=== PATIENT | female | born 1995 | race Caucasian/White ===

== ENCOUNTER 2018-02-17 22:23 | Emergency (ER) | payer BC ==
[~2018-02-17] VITALS: Ht 154.9 cm; Wt 49.4 kg
[2018-02-17 22:30] VITALS: BP 125/57; PULSE 92; RESP 16; TEMP 98.4; O2SAT 100
--- NOTE | 2018-02-17 23:41 | PD ---
HPI Chief Complaint: Skin Problem Time Seen by Provider: 23:36 Travel History International Travel<30 days: No Contact w/Intl Traveler<30days: No Traveled to known affect area: No History of Present Illness HPI 22-year-old female patient complains of pain in the left breast which has worsened significantly over the past 2 days. She now has constant pain and states is severe. Initially it worsened towards the end of menstruation and persisted afterward which patient stated was atypical. No fever. Pt reports nipple piercing years prior. no trauma. no similar prior. no hx breast ca. PFSH Past Medical History Medical History: Denies Significant Hx ?: Not Past Surgical History Surgical History: No Previous Surgery Social History Alcohol Use: Yes Tobacco Use: No Substance Use: No Allergies-Medications (Allergen,Severity, Reaction): Coded Allergies: No Known Allergies (Unverified , 02/17/18) Reported Meds & Prescriptions Reported Meds & Active Scripts Active Hydrocodone-Acetaminophen 5-325 mg Tab 1-2 Tab PO Q6H PRN Clindamycin (Clindamycin HCl) 150 Mg Cap 450 Mg PO Q8HR 10 Days Review of Systems Except as stated in HPI: all other systems reviewed are Neg General / Constitutional: No: Fever Eyes: No: Diploplia HENT: No: Headaches Cardiovascular: No: Chest Pain or Discomfort Physical Exam Narrative GENERAL: 22 yo F, WNWD, mild anxiety Vital Signs Date Time Temp Pulse Resp B/P (MAP) Pulse Ox O2 Delivery O2 Flow Rate FiO2 02/17/18 22:30 98.4 92 16 125/57 (79) 100 SKIN: Warm and dry. L breast cellulitis with abscess: medial inferior hemisphere approx 7cm with induration, erythema and fluctuance. No necrosis about the L breast. HEAD: Atraumatic. Normocephalic. EYES: Pupils equal and round. No scleral icterus. No injection or drainage. ENT: No nasal bleeding or discharge. Mucous membranes pink and moist. NECK: Trachea midline. No JVD. CARDIOVASCULAR: Regular rate and rhythm. RESPIRATORY: No accessory muscle use. Clear to auscultation. Breath sounds equal bilaterally. GASTROINTESTINAL: Abdomen soft, non-tender, nondistended. Hepatic and splenic margins not palpable. MUSCULOSKELETAL: Extremities without clubbing, cyanosis, or edema. No obvious deformities. NEUROLOGICAL: Awake and alert. No obvious cranial nerve deficits. Motor grossly within normal limits. Five out of 5 muscle strength in the arms and legs. Normal speech. PSYCHIATRIC: Appropriate mood and affect; insight and judgment normal. Data Data Last Documented VS Vital Signs Date Time Temp Pulse Resp B/P (MAP) Pulse Ox O2 Delivery O2 Flow Rate FiO2 02/17/18 22:30 98.4 92 16 125/57 (79) 100 Orders Orders Basic Metabolic Panel (Bmp) (02/17/18 23:41) Complete Blood Count With Diff (02/17/18 23:41) Wound Culture And Gram Stain (02/17/18 23:41) Iv Access Insert/Monitor (02/17/18 23:41) Wound Care (02/17/18 23:41) Vancomycin Inj (Vancomycin Inj) (02/17/18 23:45) Propofol 200 Mg/20 Ml Inj (Diprivan 200 (02/18/18 00:30) Diphenhydramine Inj (Benadryl Inj) (02/18/18 00:58) Ed Discharge Order (02/18/18 01:08) Acetamin-Hydrocod 325-5 Mg ([place] 5-325 (02/18/18 01:15) Labs Laboratory Tests Test 02/17/18 23:51 White Blood Count 15.7 TH/MM3 Red Blood Count 4.33 MIL/MM3 Hemoglobin 12.7 GM/DL Hematocrit 37.2 % Mean Corpuscular Volume 86.0 FL Mean Corpuscular Hemoglobin 29.3 PG Mean Corpuscular Hemoglobin Concent 34.0 % Red Cell Distribution Width 12.2 % Platelet Count 340 TH/MM3 Mean Platelet Volume 8.0 FL Neutrophils (%) (Auto) 72.0 % Lymphocytes (%) (Auto) 18.6 % Monocytes (%) (Auto) 8.3 % Eosinophils (%) (Auto) 0.7 % Basophils (%) (Auto) 0.4 % Neutrophils # (Auto) 11.3 TH/MM3 Lymphocytes # (Auto) 2.9 TH/MM3 Monocytes # (Auto) 1.3 TH/MM3 Eosinophils # (Auto) 0.1 TH/MM3 Basophils # (Auto) 0.1 TH/MM3 CBC Comment DIFF FINAL Differential Comment Blood Urea Nitrogen 10 MG/DL Creatinine 0.53 MG/DL Random Glucose 87 MG/DL Calcium Level 9.1 MG/DL Sodium Level 141 MEQ/L Potassium Level 3.7 MEQ/L Chloride Level 103 MEQ/L Carbon Dioxide Level 30.3 MEQ/L Anion Gap 8 MEQ/L Estimat Glomerular Filtration Rate 146 ML/MIN MDM Medical Decision Making Medical Screen Exam Complete: Yes Emergency Medical Condition: Yes Medical Record Reviewed: Yes Differential Diagnosis Abscess, cellulitis, fibrocystic change Narrative Course CBC & BMP Diagram 02/17/18 23:51 Calcium Level 9.1 18-gauge needle aspiration was performed and successfully aspirated at least 200 cc of purulent discharge. Culture sent. Clindamycin started. Discussed with Dr. Perez. Patient will follow up with him in the morning. Clindamycin prescription. Procedures Procedure Narrative After the risks and benefits were discussed the following procedure was performed: INCISION AND DRAINAGE OF ABSCESS: The area was prepped and was sterilely draped. A number 18 gauge needle successfully aspirated approx 200cc purulent discharge. Cultures were obtained. The patient was placed on a groundwater monitoring technician and pulse oximetry. An ambu bag and suction was immediately available at bedside. The patient was monitored by the nurse. Oxygen saturation, heart rate and blood pressure were monitored. Procedural sedation was acheived using propofol. The patient was observed until awake and alert. Procedural Sedation time in attendance was 15 minutes. Diagnosis Primary Impression: Breast abscess Referrals: Agustin Perez MD 1 day Med/Other Pt SpecificInfo: Prescription(s) given Scripts Hydrocodone-Acetaminophen (Hydrocodone-Acetaminophen) 5-325 mg Tab 1-2 TAB PO Q6H Y for PAIN SCALE 6 TO 10, #12 TAB 0 Refills Prov: Fahad Parker MD 02/18/18 Clindamycin (Clindamycin) 150 Mg Cap 450 MG PO Q8HR for Infection for 10 Days, CAP 0 Refills Prov: Fahad Parker MD 02/18/18 Disposition: 01 DISCHARGE HOME Condition: Stable Fahad Parker MD Feb 17, 2018 23:41
[2018-02-17] MEDS ORDERED: VANCOMYCIN INJ 1,000 MG in SODIUM CHLOR 0.9% 250 ML INJ 250 ML IV ONE (23:45)
[2018-02-18 00:11] LABS: AUTOMATED NEUTROPHIL # 11.3 TH/MM3 (1.8-7.7); BASOPHIL # 0.1 TH/MM3 (0-0.2); BASOPHIL % 0.4 % (0.0-2.0); EOSINOPHIL # 0.1 TH/MM3 (0-0.4); EOSINOPHIL % 0.7 % (0.0-4.0); HEMATOCRIT 37.2 % (35.0-46.0); HEMOGLOBIN 12.7 GM/DL (11.6-15.3); LYMPH % 18.6 % (9.0-44.0); LYMPHOCYTE # 2.9 TH/MM3 (1.0-4.8); MEAN CORPUSCULAR HEMOGLOBIN 29.3 PG (27.0-34.0); MONO % 8.3 % (0.0-8.0); MONOCYTE # 1.3 TH/MM3 (0-0.9); PLATELET COUNT 340 TH/MM3 (150-450); RED BLOOD COUNT 4.33 MIL/MM3 (4.00-5.30); RED CELL DISTRIBUTION WIDTH 12.2 % (11.6-17.2); WHITE BLOOD COUNT 15.7 TH/MM3 (4.0-11.0)
[2018-02-18] MEDS ORDERED: CLIN150C14 PO (00:18)
[2018-02-18] MEDS ORDERED: PROPOFOL 200 MG/20 ML AMP IV ONE (00:30)
[2018-02-18 00:31] LABS: BICARBONATE 30.3 MEQ/L (21.0-32.0); CALCIUM 9.1 MG/DL (8.5-10.1); CREATININE 0.53 MG/DL (0.50-1.00)
[2018-02-18 00:33] VITALS: O2SAT 100
[2018-02-18] MEDS ORDERED: diphenhydrAMINE HCL 50 MG/ML VIAL ONE (00:58)
[2018-02-18] MEDS ORDERED: HYDR-3516 PO (01:08)
[2018-02-18] MEDS ORDERED: ACETAMINOPHEN/HYDROcodone 325 MG/5 MG TAB PO ONE (01:15)
[2018-02-18] MEDS ORDERED: methylPREDNISolone SOD SUCC 125 MG/2 ML VIAL IV PUSH ONE (01:30)
[2018-02-18] MEDS ORDERED: FAMOTIDINE 20 MG/2 ML VIAL IV PUSH ONE (01:30)
[2018-02-18 02:50] VITALS: BP 102/59
== END 2018-02-18 03:00 | disposition home or self-care (01) ==
LOC: NEPD 22:23
DX: N61.1 Abscess of the breast and nipple (principal)
CPT/HCPCS: 10060; 80048; 85025; 87070; 96365; 96375; 99152; 99284; J1200; J2930; J3370; J7050